=== PATIENT | female | born 1955 | race Caucasian/White ===

== ENCOUNTER 2021-10-09 10:57 | Outpatient (CLI) | payer OTHER | END 2021-10-09 11:02 | disposition home or self-care (01) | LOC: RAD 10:57 | PROVIDERS: ATTEND General Practice | DX: M54.2 Cervicalgia (principal); M54.6 Pain in thoracic spine ==

== ENCOUNTER 2022-02-01 09:00 | Outpatient (CLI) | payer OTHER | END 2022-02-01 09:11 | disposition home or self-care (01) | LOC: RAD 09:00 | PROVIDERS: ATTEND General Practice | DX: J44.0 Chronic obstructive pulmonary disease with (acute) lower respiratory infection (principal) ==

== ENCOUNTER 2022-02-17 13:32 | Outpatient (CLI) | payer OTHER | END 2022-02-17 13:33 | disposition home or self-care (01) | LOC: NUCLEAR 13:32 | PROVIDERS: ATTEND Internal Medicine | DX: M81.0 Age-related osteoporosis without current pathological fracture (principal) ==

== ENCOUNTER 2022-02-18 09:47 | Outpatient (CLI) | payer OTHER | END 2022-02-18 09:52 | disposition home or self-care (01) | LOC: MAMO-SONO 09:47 | PROVIDERS: ATTEND Internal Medicine | DX: Z12.31 Encounter for screening mammogram for malignant neoplasm of breast (principal); N63.0 Unspecified lump in unspecified breast ==

== ENCOUNTER → 2022-02-18 10:59 | Outpatient (CLI) | payer OTHER | END | disposition home or self-care (01) | LOC: LAB 10:59 | PROVIDERS: ATTEND Internal Medicine | DX: D64.9 Anemia, unspecified (principal); E11.9 Type 2 diabetes mellitus without complications; E78.00 Pure hypercholesterolemia, unspecified; N39.0 Urinary tract infection, site not specified; E03.8 Other specified hypothyroidism; R80.8 Other proteinuria; R19.5 Other fecal abnormalities; Z12.11 Encounter for screening for malignant neoplasm of colon; E55.9 Vitamin D deficiency, unspecified ==

== ENCOUNTER 2022-02-19 13:33 | Outpatient (CLI) | payer OTHER | END 2022-02-19 13:46 | disposition home or self-care (01) | LOC: LAB 13:33 | PROVIDERS: ATTEND Internal Medicine | DX: D64.9 Anemia, unspecified (principal); E11.9 Type 2 diabetes mellitus without complications; E78.00 Pure hypercholesterolemia, unspecified; N39.0 Urinary tract infection, site not specified; E03.8 Other specified hypothyroidism; R80.8 Other proteinuria; R19.5 Other fecal abnormalities; Z12.11 Encounter for screening for malignant neoplasm of colon; E55.9 Vitamin D deficiency, unspecified ==

== ENCOUNTER → 2022-03-24 | Outpatient (CLI) | payer OTHER | END | disposition home or self-care (01) | LOC: RAD 12:24 | PROVIDERS: ATTEND Internal Medicine | DX: M54.17 Radiculopathy, lumbosacral region (principal); M85.80 Other specified disorders of bone density and structure, unspecified site; E11.42 Type 2 diabetes mellitus with diabetic polyneuropathy; E78.2 Mixed hyperlipidemia; I11.9 Hypertensive heart disease without heart failure; E11.69 Type 2 diabetes mellitus with other specified complication ==

== ENCOUNTER 2022-06-09 08:44 | Outpatient (CLI) | payer OTHER | END 2022-06-09 09:10 | disposition home or self-care (01) | LOC: LAB 08:44 | PROVIDERS: ATTEND Internal Medicine | DX: M25.70 Osteophyte, unspecified joint (principal); D64.89 Other specified anemias; E11.8 Type 2 diabetes mellitus with unspecified complications; E78.00 Pure hypercholesterolemia, unspecified; N39.0 Urinary tract infection, site not specified; E03.8 Other specified hypothyroidism; E55.9 Vitamin D deficiency, unspecified ==

== ENCOUNTER → 2022-06-12 10:18 | Outpatient (CLI) | payer OTHER | END | disposition home or self-care (01) | LOC: LAB 10:18 | PROVIDERS: ATTEND Internal Medicine | DX: D64.9 Anemia, unspecified (principal); E11.9 Type 2 diabetes mellitus without complications; E78.00 Pure hypercholesterolemia, unspecified; N39.0 Urinary tract infection, site not specified; E03.8 Other specified hypothyroidism; R19.5 Other fecal abnormalities; E55.9 Vitamin D deficiency, unspecified; Z12.11 Encounter for screening for malignant neoplasm of colon ==

== ENCOUNTER 2022-11-27 13:59 | Outpatient (CLI) | payer OTHER | END 2022-11-27 14:08 | disposition home or self-care (01) | LOC: RAD 13:59 | PROVIDERS: ATTEND Physical Medicine & Rehabilitation | DX: M54.2 Cervicalgia (principal); M51.36 Other intervertebral disc degeneration, lumbar region ==

== ENCOUNTER 2023-02-12 14:07 | Outpatient (CLI) | payer OTHER | END 2023-02-12 14:19 | disposition home or self-care (01) | LOC: MRI 14:07 | PROVIDERS: ATTEND Internal Medicine | DX: M54.17 Radiculopathy, lumbosacral region (principal) | CPT/HCPCS: 72148 ==

== ENCOUNTER 2023-03-30 09:32 | Outpatient (CLI) | payer OTHER | END 2023-03-30 09:37 | disposition home or self-care (01) | LOC: NUCLEAR 09:32 | PROVIDERS: ATTEND Internal Medicine | DX: I87.2 Venous insufficiency (chronic) (peripheral) (principal) ==

== ENCOUNTER 2023-05-18 14:32 | Outpatient (CLI) | payer OTHER | END 2023-05-18 14:34 | disposition home or self-care (01) | LOC: RAD 14:32 | PROVIDERS: ATTEND Podiatrist Foot Surgery | DX: M20.41 Other hammer toe(s) (acquired), right foot (principal); M20.42 Other hammer toe(s) (acquired), left foot ==

== ENCOUNTER 2023-06-16 09:39 | Outpatient (CLI) | payer OTHER ==
[2023-06-16 10:48] LABS: HEMATOCRIT 40.9 % (36.0-45.00); HEMOGLOBIN 13.8 g/dL (12.0-15.00); MEAN CORPUSCULAR HGB CONC 33.8 g/dl (32.0-36.0); PLATELET COUNT 223 K/uL (150-450); RED BLOOD COUNT 4.92 M/uL (4.00-6.00); RED CELL DISTRIBUTION WIDTH 14.4 % (11.5-14.5)
[2023-06-16 10:50] LABS: PH,URINE 5.5 (5.0-8.0); URINE APPEARANCE Clear; URINE BILIRRUBIN Negative (NEGATIVE); URINE BLOOD Negative; URINE COLOR Yellow; URINE GLUCOSE Negative (NEGATIVE); URINE LEUKOCYTE Trace; URINE NITRATE Negative; URINE PROTEIN Negative (NEGATIVE); URINE UROBILINOGEN 0.2 E.U./dl
[2023-06-16 10:51] LABS: URINE BACTERIA 8.8 uL (0.0-1933); URINE EPITHELIAL CELLS 2.6 uL (0.0-38.8); URINE RBC 29.3 uL (0.0-20.8); URINE WBC 6.1 uL (0.0-23.2)
[2023-06-16 11:27] LABS: BILIRUBIN TOTAL 0.46 mg/dL (0.3-1.2); CALCIUM 9.4 mg/dL (8.5-10.1); CHOL HDL RATIO 3.6 (0-5.0); CREATININE SERUM 0.61 mg/dL (0.55-1.02); GFR 98.13; GLOBULINA 3.3 G/DL (2.4-3.5); POTASSIUM 4.05 mEq/L (3.5-5.1); TOTAL PROTEIN 7.3 gm/dL (6.4-8.2); TSH 0.71 uIU/mL (0.358-3.74)
== END 2023-06-16 14:01 | disposition home or self-care (01) ==
LOC: LAB 09:39
PROVIDERS: ATTEND Internal Medicine
DX: D64.9 Anemia, unspecified (principal); E11.9 Type 2 diabetes mellitus without complications; E78.00 Pure hypercholesterolemia, unspecified; N39.0 Urinary tract infection, site not specified; E03.8 Other specified hypothyroidism; N18.31 Chronic kidney disease, stage 3a; Z12.11 Encounter for screening for malignant neoplasm of colon; R19.5 Other fecal abnormalities; E55.9 Vitamin D deficiency, unspecified

== ENCOUNTER 2023-07-08 11:45 | Outpatient (CLI) | payer OTHER | END 2023-07-08 11:54 | disposition home or self-care (01) | LOC: MRI 11:45 | PROVIDERS: ATTEND Physical Medicine & Rehabilitation | DX: M54.2 Cervicalgia (principal) | CPT/HCPCS: 70553; 72141; Q9965 ==

== ENCOUNTER 2023-07-09 11:11 | Outpatient (CLI) | payer OTHER | END 2023-07-09 11:13 | disposition home or self-care (01) | LOC: NUCLEAR 11:11 | PROVIDERS: ATTEND Physical Medicine & Rehabilitation | DX: I87.2 Venous insufficiency (chronic) (peripheral) (principal) ==

== ENCOUNTER 2024-01-20 18:18 | Emergency (ER) | payer OTHER ==
[~2024-01-20] VITALS: Ht 157.5 cm; Wt 73.5 kg
[~2024-01-20 18:18] MED LIST: CHILDREN'S ASPI81 MG; GLUMETZA500 MG
[2024-01-20] MEDS ORDERED: HUMALOG100 UNIT/2 SQ (18:36)
[2024-01-20] MEDS ORDERED: LANTUS SOL100 UNIT/1 SQ (18:36)
[2024-01-20] MEDS ORDERED: ATORVASTATIN CA10 MG PO (18:36)
[2024-01-20] MEDS ORDERED: ORPHENADRINE CITRATE 30 MG/ML AMPUL IM ONE (19:00)
[2024-01-20] MEDS ORDERED: ACETAMINOPHEN 500 MG GEL..CAP PO ONE (19:00)
[2024-01-20] MEDS ORDERED: 0.9 % SODIUM CHLORIDE 1,000 ML IV SCH (19:00)
[2024-01-20 19:21] LABS: HEMATOCRIT 37.5 % (36.0-45.00); HEMOGLOBIN 12.9 g/dL (12.0-15.00); MEAN CELL VOLUME 80.9 fL (80.00-100.00); MEAN CORPUSCULAR HEMOGLOBIN 27.7 pg (27.00-32.0); MEAN CORPUSCULAR HGB CONC 34.3 g/dl (32.0-36.0); PLATELET COUNT 168 K/uL (150-450); RED BLOOD COUNT 4.64 M/uL (4.00-6.00); RED CELL DISTRIBUTION WIDTH 14.8 % (11.5-14.5)
[2024-01-20] MEDS ORDERED: FAMOTIDINE/PF 20 MG in 0.9 % SODIUM CHLORIDE 8 ML IV PUSH STA (19:53)
[2024-01-20] MEDS ORDERED: OSELTAMIVIR PHOSPHATE 75 MG CAPSULE PO ONE (20:00)
[2024-01-20 20:03] LABS: ABG PH 7.478 (7.35-7.45); ABG PO2 68.2 mmHg (80-100); ABG pCO2 30.8 mmHg (35-45); BASE EXCESS -0.1 mmol/l; BICARBONATE 22.3 mmol/l (23-25); SaO2 94.7 %; Tco2 23.3 mmol/l
[2024-01-20 20:06] LABS: BILIRUBIN TOTAL 0.5 mg/dL (0.3-1.2); CALCIUM 8.6 mg/dL (8.5-10.1); CREATININE SERUM 0.87 mg/dL (0.55-1.02); GFR 65.14; GLOBULINA 3.4 G/DL (2.4-3.5); POTASSIUM 3.87 mEq/L (3.5-5.1); TOTAL PROTEIN 7.4 gm/dL (6.4-8.2)
[2024-01-20 20:30] LABS: allen test SATISFACTORY; o2 21 %; puncture site RADIAL LEFT
[2024-01-20] MEDS ORDERED: METHYLPREDNISOLONE SOD SUCC 125 MG VIAL IV ONE (21:00)
[2024-01-20] MEDS ORDERED: INSULIN GLARGINE,HUM.REC.ANLOG 1,000 UNITS/10 ML UNITS SUBCUTANEO ONE (21:15)
[2024-01-20] MEDS ORDERED: LEVALBUTEROL HCL 1.25 MG/3 ML SOLUTION IH SCH (21:15)
[2024-01-20] MEDS ORDERED: ZITHROMAX500 MG PO (23:14)
[2024-01-20] MEDS ORDERED: DOLOGEN CAPLET1 EACH PO (23:14)
[2024-01-20] MEDS ORDERED: OSEL75CA PO (23:14)
[2024-01-20] MEDS ORDERED: TUSNEL LIQUID178 ML PO (23:14)
[2024-01-20] MEDS ORDERED: XOPENEX CO1.25 MG/0. IH (23:14)
== END 2024-01-20 23:28 | disposition home or self-care (01) ==
LOC: ER 18:18
PROVIDERS: General Practice
DX: J10.1 Influenza due to other identified influenza virus with other respiratory manifestations (principal); R53.81 Other malaise; R06.02 Shortness of breath; Z20.822 Contact with and (suspected) exposure to COVID-19; I10 Essential (primary) hypertension; E11.9 Type 2 diabetes mellitus without complications; Z79.84 Long term (current) use of oral hypoglycemic drugs
CPT/HCPCS: 36415; 71045; 71250; 82803; 94640; 96365; 96366; 96372; 99284; J2360; J3490; J7030

== ENCOUNTER 2024-02-24 08:08 | Outpatient (CLI) | payer OTHER ==
[~2024-02-24 08:08] MED LIST changes: +ATORVASTATIN CA10 MG PO; +DOLOGEN CAPLET1 EACH PO; +HUMALOG100 UNIT/2 SQ; +LANTUS SOL100 UNIT/1 SQ; +OSEL75CA PO; +TUSNEL LIQUID178 ML PO; +XOPENEX CO1.25 MG/0. IH; +ZITHROMAX500 MG PO
[2024-02-24 08:45] LABS: HEMATOCRIT 41.6 % (36.0-45.00); MEAN CORPUSCULAR HEMOGLOBIN 27.7 pg (27.00-32.0); MEAN CORPUSCULAR HGB CONC 33.8 g/dl (32.0-36.0); PLATELET COUNT 241 K/uL (150-450); RED BLOOD COUNT 5.07 M/uL (4.00-6.00); RED CELL DISTRIBUTION WIDTH 14.7 % (11.5-14.5)
[2024-02-24 08:54] LABS: URINE APPEARANCE Clear; URINE BILIRRUBIN Negative (NEGATIVE); URINE BLOOD Negative; URINE COLOR Yellow; URINE GLUCOSE Negative (NEGATIVE); URINE KETONE Negative (NEGATIVE); URINE LEUKOCYTE Small; URINE NITRATE Negative; URINE PROTEIN Negative (NEGATIVE); URINE UROBILINOGEN 0.2 E.U./dl
[2024-02-24 08:55] LABS: URINE BACTERIA 16.3 uL (0.0-1933); URINE EPITHELIAL CELLS 5.2 uL (0.0-38.8); URINE RBC 13.7 uL (0.0-20.8); URINE WBC 30.5 uL (0.0-23.2)
[2024-02-24 09:25] LABS: CALCIUM 9.7 mg/dL (8.5-10.1); CHOL HDL RATIO 3.9 (0-5.0); CREATININE SERUM 0.6 mg/dL (0.55-1.02); GFR 100.02; POTASSIUM 4.07 mEq/L (3.5-5.1); T4 TOTAL 7.57 UG/DL (4.8-13.9); TSH 1.21 uIU/mL (0.358-3.74)
== END 2024-02-24 08:12 | disposition home or self-care (01) ==
LOC: LAB 08:08
PROVIDERS: ATTEND Internal Medicine Cardiovascular Disease
DX: E03.9 Hypothyroidism, unspecified (principal); I10 Essential (primary) hypertension; E11.9 Type 2 diabetes mellitus without complications; E78.2 Mixed hyperlipidemia

== ENCOUNTER 2024-03-18 15:44 | Outpatient (CLI) | payer OTHER | END 2024-03-18 15:51 | disposition home or self-care (01) | LOC: RAD 15:44 | PROVIDERS: ATTEND Internal Medicine Cardiovascular Disease | DX: M12.9 Arthropathy, unspecified (principal) ==

== ENCOUNTER 2024-05-23 14:14 | Outpatient (CLI) | payer OTHER | END 2024-05-23 14:22 | disposition home or self-care (01) | LOC: RAD 14:14 | PROVIDERS: ATTEND Podiatrist Foot Surgery | DX: M20.42 Other hammer toe(s) (acquired), left foot (principal); I73.9 Peripheral vascular disease, unspecified ==

== ENCOUNTER 2024-08-10 09:50 | Outpatient (CLI) | payer OTHER | END 2024-08-10 09:58 | disposition home or self-care (01) | LOC: MRI 09:50 | PROVIDERS: ATTEND Internal Medicine Cardiovascular Disease | DX: M19.90 Unspecified osteoarthritis, unspecified site (principal) | CPT/HCPCS: 73721 ==

== ENCOUNTER 2024-10-27 09:41 | Outpatient (CLI) | payer OTHER ==
[2024-10-27 11:34] LABS: ALT/SGPT 32.0 U/L (12-78); AST/SGOT 19.0 U/L (15-37); BILIRUBIN TOTAL 0.48 mg/dL (0.3-1.2); BUN CREA RATIO 19.0 (7.0-25.0); CREATININE SERUM 0.68 mg/dL (0.55-1.02); GFR 86.3; GLOBULINA 3.4 G/DL (2.4-3.5); GLUCOSE FASTING 175.0 mg/dL (65-100); OSMOLALITY SERUM 287.0 MOSM/KG (275-295)
[2024-10-28 09:08] LABS: C PEPTIDE 1.8 ng/mL (1.1-4.4)
[2024-10-29 17:11] LABS: GLUTAMIC ACID DECARBOXYLASE 9.2 U/mL (0.0-5.0)
== END 2024-10-27 09:44 | disposition home or self-care (01) ==
LOC: LAB 09:41
DX: E11.65 Type 2 diabetes mellitus with hyperglycemia (principal)